=== PATIENT | female | born 1995 | race Hispanic/Latino ===

== ENCOUNTER 2016-08-16 22:53 | Emergency (ER) | payer OTHER ==
[~2016-08-16] VITALS: Ht 157.5 cm; Wt 105.0 kg
[~2016-08-16 22:53] MED LIST: CEPH-512 PO; CEPH500C PO
[2016-08-16 23:07] VITALS: BP 116/69; PULSE 82; RESP 16; O2SAT 99
--- NOTE | 2016-08-17 00:37 | ED.REPORT ---
HPI-Rash / Abscess Date of Service Aug 17, 2016 ED Provider: Lavon Liu MD Pt is a 20 y/o female presenting to the ED c/o diffuse itchy rash onset this morning. She states that after she breastfed her child it seemed to spread to him. She denies any new medications, foods, exposure to insects. There are no other household members affected. She has no other complaints or concerns. Nursing Notes Stated Complaint: RASH Chief Complaint: Skin Rash/Abscess Nursing Notes Reviewed: Yes Allergies: Coded Allergies: No Known Allergies (Verified Allergy, Unknown, 05/14/16) Scheduled Cephalexin (Keflex) 500 Mg Capsule 500 MG PO TID Cephalexin (Cephalexin) 500 Mg Capsule 500 MG PO TID Scheduled PRN Hydrocortisone (Hydrocortisone) 2.5 % Cream.appl 30 GM RC BID PRN PRN rash diphenhydrAMINE HCl (Benadryl) 25 Mg Capsule 25 MG PO Q4 PRN PRN For Itching General Time Seen by MD: 00:35 Chief Complaint Rash Hx Obtained From: Patient Arrived By: Walk-in Onset Occurred: 9 - 12 hours ago Symptom Duration: Since onset Severity: Current: No pain currently Severity: Maximum: No pain Similar Sx Previous: No Past Medical History Past Medical History G1 Thyroid issues Past Surgical History Reports: Cholecystectomy Family History reviewed, not relevant Smoking History Never Smoker Social History Alcohol Use: Denies alcohol use Drug Use: Denies drug use Ambulatory Status Independent Review of Systems Constitutional: Denies: Chills, Fever GI: Denies: Nausea, Vomiting Skin: Reports Itching, Reports Rash Complete sys rev & neg: except as marked. Physical Exam Initial Vital Signs Vital Signs (First) Date Time Temp Pulse Resp B/P Pulse Ox O2 Delivery O2 Flow Rate FiO2 08/16/16 23:07 36.5 82 16 116/69 99 Initial VS: Reviewed, Vital signs normal Head / Eyes: Atraumatic, Normocephalic, PERRL ENT: Mucous membranes moist, Conjunctiva normal, No scleral icterus Neck: Supple, Full range of motion Respiratory: No respiratory distress Cardiovascular: Intact distal pulses Abdomen / GI: Soft, Non-tender Extremities: Vascular intact, Neuro intact, No swelling, No tenderness Neurologic: Alert, Oriented, Nonfocal Psychiatric: Mood/affect normal, Behavior normal, Normal thought content General/Constitutional: Awake, Alert, No acute distress, Cooperative, Not toxic appearing Skin: Atraumatic, Warm, Dry, Intact Color / Condition: Positive: Rash present Rash / Lesion Notes: Scattered erythematous papules with several scattered urticaria. Re-Eval/Medical Decision Med Decision/Clinical Course Allergic reaction. Benadryl as needed. No sign symptoms anaphylaxis. Return precautions given. Re-Evaluation/Progress : Time of Eval: 00:52 Re-Evaluation/Progress Note: Pt rechecked. Informed pt of plan for treatment. Pt understands and agrees with plan for treatment. F/U instructions and RTER warnings given. All questions addressed. Counseled Regarding: Diagnosis, Need for follow-up, When/why to return to ED Discharge & Departure Impression: Primary Impression: Allergic dermatitis Disposition: Home Discharge Condition All VS Reviewed: Yes Condition: Stable Patient Instructions: Contact Dermatitis (ED) Additional Instructions: It appears this rash is caused by an allergic reaction. Use Benadryl as needed for rash. Use the hydrocortisone cream as directed. Return to the emergency department if you experience throat or tongue swelling, shortness of breath, vomiting, high fever, or for other concerning symptoms. Follow-up with your primary care doctor as regularly scheduled. Referrals: [facility] Scribe Attestation Portions of this note were transcribed by Luis Perales. I, Dr. Liu, personally performed the history, physical exam and medical decision-making; I reviewed and confirmed the accuracy of the information in the transcribed note. Signed by Mirta Leblanc, 08/17/16 - 0045 Lavon Liu MD Aug 17, 2016 00:37 LUIS PERALES Aug 17, 2016 00:45
[2016-08-17] MEDS ORDERED: DIPH25CA6 PO (00:51)
[2016-08-17] MEDS ORDERED: HYDR30CR98 RC (00:51)
[2016-08-17] MEDS ORDERED: diphenhydrAMINE 25 mg Capsule PO ONE ×2 (01:08→01:15)
[2016-08-17 01:12] VITALS: BP 116/69; PULSE 82; RESP 16; O2SAT 99
== END 2016-08-17 01:12 | disposition home or self-care (01) ==
LOC: SED 22:53
DX: L23.9 Allergic contact dermatitis, unspecified cause (principal); E03.9 Hypothyroidism, unspecified